=== PATIENT | female | born 1985 | race Caucasian/White ===

== ENCOUNTER 2019-06-28 16:26 | Inpatient (IN) | payer OTHER ==
[~2019-06-28] VITALS: Ht 170.2 cm; Wt 76.7 kg
[~2019-06-28 16:26] MED LIST: INTEGRA CAPSUL1 EACH PO; PRENATABS FA T1 EACH PO
[2019-07-05] MEDS ORDERED: ATABEX DHA 200200 MG PO (15:26)
[2019-07-15] MEDS ORDERED: KETO10TA2 PO (08:03)
[2019-07-15] MEDS ORDERED: OXYC1TAB9 PO (08:04)
== END 2019-07-15 12:55 | disposition home or self-care (01) | DRG 788 ==
LOC: LDR 07-12 00:06 → SURG-SUITE 07-12 00:06 → OB/GYN 07-13 12:45 → SURG-SUITE 07-15 12:55
PROVIDERS: ADMIT Obstetrics & Gynecology Maternal & Fetal Medicine
PROC: 4A1HXCZ Monitoring of Products of Conception, Cardiac Rate, External Approach (ICD-10-PCS; 2019-07-12)
PROC: 4A033R1 Measurement of Arterial Saturation, Peripheral, Percutaneous Approach (ICD-10-PCS; 2019-07-12)
PROC: 10D00Z1 Extraction of Products of Conception, Low, Open Approach (ICD-10-PCS; principal; 2019-07-12 07:00)
DX: O34.211 Maternal care for low transverse scar from previous cesarean delivery (principal); O82 Encounter for cesarean delivery without indication; Z37.0 Single live birth; Z3A.39 39 weeks gestation of pregnancy; Z22.330 Carrier of Group B streptococcus

== ENCOUNTER 2019-07-11 15:09 | Outpatient (CLI) | payer OTHER ==
[~2019-07-11 15:09] MED LIST changes: +ATABEX DHA 200200 MG PO
== END 2019-07-11 15:35 | disposition home or self-care (01) ==
LOC: NST 15:09
DX: Z34.83 Encounter for supervision of other normal pregnancy, third trimester (principal)